=== PATIENT | female | born 1945 | race Caucasian/White ===

== ENCOUNTER → 2019-03-11 | Outpatient (REF) | payer OTHER ==
[2019-03-11 22:39] LABS: % LABILE ALKALINE PHOSPHATASE 78.75 %; LABILE ALKPHOS 278 U/L; STABLE ALKPHOS 75 U/L
[2019-03-12 10:42] LABS: HEPATITIS A ANTIBODY IGM NEGATIVE (NEGATIVE); HEPATITIS B CORE ANTIBODY IGM NEGATIVE (NEGATIVE); HEPATITIS B SURFACE ANTIGEN NEGATIVE (NEGATIVE)
== END ==
LOC: M LAB REF 16:45
PROVIDERS: ATTEND Internal Medicine
DX: R79.89 Other specified abnormal findings of blood chemistry (principal)

== ENCOUNTER → 2019-03-13 | Outpatient (REF) | payer OTHER ==
[2019-03-13 13:41] LABS: TOTAL PROTEIN 7.3 GM/DL (6.4-8.2)
[2019-03-13 14:04] LABS: URINE TOTAL PROTEIN 5.1 MG/DL (0-12)
[2019-03-18 10:46] LABS: ALBUMIN 3.99 GM/DL (3.29-5.55); ALBUMIN % 54.6 % (55.8-66.1); ALPHA-1-GLOBULIN % 4.2 % (2.9-4.9); ALPHA-1-GLOBULINS 0.31 GM/DL (0.17-0.41); ALPHA-2-GLOBULINS 0.82 GM/DL (0.42-0.99); ALPHA-2-GLOBULINS % 11.2 % (7.1-11.8); BETA-1-GLOBULINS 0.51 GM/DL (0.28-0.60); BETA-2-GLOBULINS 0.45 GM/DL (0.19-0.55); BETA-2-GLOBULINS % 6.1 % (3.2-6.5); GAMMA GLOBULIN % 16.9 % (11.1-18.8)
[2019-03-18 10:47] LABS: GAMMA GLOBULINS 1.23 GM/DL (0.65-1.58)
[2019-03-20 11:37] LABS: UPEP INTERPRETATION NO M-SPIKE NOTED
== END ==
LOC: M LAB REF 13:01
PROVIDERS: ATTEND Internal Medicine
DX: R74.8 Abnormal levels of other serum enzymes (principal)

== ENCOUNTER → 2021-11-16 | Outpatient (REF) | payer OTHER ==
[2021-11-16 13:10] LABS: CK-MB VALUE MASS 3.1 NG/ML (<3.6); MB/CK RELATIVE INDEX 5.25 (< OR =4)
== END ==
LOC: M LAB REF 11:30
PROVIDERS: ATTEND Internal Medicine
DX: I44.7 Left bundle-branch block, unspecified (principal)

== ENCOUNTER → 2022-04-10 | Outpatient (CLI) | payer OTHER | LOC: M WUC 14:32 | PROVIDERS: ATTEND Internal Medicine | DX: R05.9 Cough, unspecified (principal) ==

== ENCOUNTER → 2022-04-24 | Outpatient (CLI) | payer OTHER ==
[~2022-04-24] MED LIST: ISOVUE-370 76% 100ML VIAL As Ordered ONE
== END ==
LOC: M RAD 13:38
PROVIDERS: ATTEND Internal Medicine
DX: R91.1 Solitary pulmonary nodule (principal)
CPT/HCPCS: 71260; Q9967

== ENCOUNTER → 2023-03-05 | Outpatient (REF) | payer OTHER ==
[2023-03-05 17:45] LABS: IRON (FE) 40 UG/DL (50-170)
[2023-03-05 17:49] LABS: CARCINOEMBRYONIC ANTIGEN < 2.0 NG/ML (<2.5); FERRITIN 91.6 NG/ML (7.3-270.7)
[2023-03-05 17:55] LABS: PERCENT SATURATION 11.8 % (13.2-45.0); TOTAL IRON BINDING CAPACITY 340 UG/DL (250-425)
== END ==
LOC: M LAB REF 16:20
PROVIDERS: ATTEND Internal Medicine
DX: D64.9 Anemia, unspecified (principal); R19.4 Change in bowel habit

== ENCOUNTER → 2025-03-12 | Outpatient (CLI) | payer OTHER | LOC: M RAD 14:24 | PROVIDERS: ATTEND Internal Medicine | DX: R19.02 Left upper quadrant abdominal swelling, mass and lump (principal) | CPT/HCPCS: 74177; Q9967 ==